=== PATIENT | male | born 1940 | race Caucasian/White ===

== ENCOUNTER → 2018-08-06 | Outpatient (CLI) | payer MEDICARE, BC ==
[~2018-08-06] MED LIST: CARV40CP PO; CRESTOR10 MG PO; LEVO112T2 PO; LIPA1CAP11 PO; LISI-130 PO; METF500T16 PO; PROVENTIL HFA6.7 GM IH; TRIA1TAB3 PO
--- NOTE | 2018-08-06 14:40 | KCIC ---
EXAM: Head CT without contrast. HISTORY: Fall. Unsteady gait. TECHNIQUE: Computed tomographic images of the head were obtained without contrast. *One or more of the following individualized dose reduction techniques were utilized for this examination: 1. Automated exposure control. 2. Adjustment of the mA and/or kV according to patient size. 3. Use of iterative reconstruction technique. COMPARISON: None. FINDINGS: There is no acute or subacute extra-axial or intraparenchymal hemorrhage. There is no mass effect or midline shift. There is no hydrocephalus. There are areas of decreased attenuation within the cerebral white matter, nonspecific and likely related to chronic small vessel disease. There is cerebral volume loss. There is surgical instrument septation within the bilateral maxillary bones. The mastoid air cells are clear. No suspicious calvarial lesion is seen. IMPRESSION: 1. No acute intracranial finding. 2. Subtle areas of hypodensity within the cerebral white matter, likely due to chronic small vessel disease. 3. Cerebral volume loss. Electronically signed by: Cleopatra Mccormick MD (08/06/2018 2:36 PM) [facility]
== END | disposition home or self-care (01) ==
LOC: KCIC CT 13:04
PROVIDERS: ATTEND Psychiatry & Neurology Neurology with Special Qualifications in Child Neurology
DX: R90.82 White matter disease, unspecified (principal); G31.9 Degenerative disease of nervous system, unspecified; Z91.81 History of falling
CPT/HCPCS: 70450

== ENCOUNTER → 2018-11-16 | Outpatient (CLI) | payer MEDICARE, BC ==
[~2018-11-16] MED LIST changes: +ALBU2.5V8 IH; -PROVENTIL HFA6.7 GM IH
--- NOTE | 2018-11-16 18:43 | KCIC ---
EXAM: AP and frog-leg lateral views of the right hip DATE: 11/16/2018 12:00 AM INDICATION: Chronic right hip pain, chronic lower back pain COMPARISON: No Prior FINDINGS: No evidence of acute fracture or dislocation. Joint spaces are preserved without significant degenerative/proliferative change. Chondrocalcinosis right hip joint. Prominent proliferative change/enthesopathic changes at the right anterior superior iliac spine possibly from old avulsion injury. IMPRESSION: 1. No evidence of acute fracture or dislocation. Electronically signed by: Azael Soto MD (11/16/2018 6:39 PM) [facility]
--- NOTE | 2018-11-16 18:48 | KCIC ---
EXAM: AP, lateral and lumbosacral spot views of the lumbar spine DATE: 11/16/2018 12:00 AM INDICATION: Chronic low back pain COMPARISON: CT abdomen and pelvis 01/10/2016 FINDINGS: For the purposes of this report, there are 5 nonrib-bearing lumbar-type vertebral bodies with partial lumbarization of S1. There is moderate to severe L2-3 and moderate L4-5 intervertebral disc height loss. Small anterior endplate osteophytes are seen. Moderate to severe facet degenerative changes at L2-3 and below. Straightening of the normal lumbar lordosis. No spondylolisthesis. Decreased bone mineral density. Cholecystectomy clips are seen. Moderate to large volume colonic stool content is noted. IMPRESSION: 1. Multilevel spondylosis as above 2. Negative acute fracture or subluxation. 3. Transitional lumbosacral anatomy as above. Electronically signed by: Azael Soto MD (11/16/2018 6:44 PM) [facility] [place]
== END | disposition home or self-care (01) ==
LOC: KCIC 15:29
PROVIDERS: ATTEND Psychiatry & Neurology Neurology with Special Qualifications in Child Neurology
DX: M11.251 Other chondrocalcinosis, right hip (principal); M47.896 Other spondylosis, lumbar region; M25.78 Osteophyte, vertebrae
CPT/HCPCS: 72100; 73502

== ENCOUNTER → 2019-02-18 | Outpatient (CLI) | payer MEDICARE, BC ==
--- NOTE | 2019-02-18 17:28 | KCIC ---
CT LUMBAR SPINE WO CONTRAST Indication: Low back pain, unsteady gait Technique: Noncontrast CT imaging was performed of the lumbar spine, multiplanar reconstruction images submitted. One or more of the following individualized dose reduction techniques were utilized for this examination: 1. Automated exposure control 2. Adjustment of the mA and/or kV according to patient size 3. Use of iterative reconstruction technique. Comparison: Reconstruction images from CT abdomen pelvis exam January 10, 2016 Findings: Lumbar vertebral body stature is overall maintained. There is again advanced degenerative disc disease L2-3, L4-5, and L5-S1, to lesser degree at L3-4 and L1-L2. AP alignment is similar, negligible anterior spondylolisthesis at L2-3. No acute lumbar spine fracture is identified. There is mild lumbar levoscoliosis. Not fully evaluated, there is colonic diverticulosis. L1-L2: There is minimal disc osteophyte complex and bulge. Neural foramina are overall adequate. Spinal facet degenerative change. Spinal canal is not significantly narrowed. L2-L3: There is moderate bilateral facet hypertrophic change and mild buckling of the ligamentum flavum. There is minimal disc osteophyte complex. There is probable mild narrowing of the far lateral recesses greater on the left. There is likely mild narrowing of the inferior right neural foramen, left neural foramen adequate. L3-L4: There is minimal disc osteophyte complex and bulge. There is moderate facet degenerative change and mild buckling of the ligament flavum. There is likely mild narrowing of the far left lateral recess. Left neural foramen is adequate. There is moderate narrowing of the right neural foramen, contact of the ventral surface exiting right L3 nerve root by osteophyte. L4-L5: There is moderate facet degenerative change. There is disc osteophyte complex. There may be a shallow more central extrusion extending below the intervertebral disc space. Spinal canal is not significantly narrowed, possible mild narrowing of the far right lateral recess. There is moderate to severe narrowing of the left neural foramen by disc osteophyte complex and facet, mild narrowing of the right neural foramen. L5-S1: There is minimal disc osteophyte complex. There is mild to moderate facet degenerative change greater on the left. Spinal canal is not significantly narrowed. Right neural foramen is adequate, fairly severe narrowing of the left neural foramen in part by disc osteophyte complex contact exiting left L5 nerve root. IMPRESSION: 1. There is more advanced degenerative disc disease L2-3, L4-5, L5-S1 and to lesser degree at other levels. There is multilevel mild spondylosis. There is likely some variable mild lateral recess stenosis as stated, somewhat limited evaluation without myelographic contrast. There is neural foramina compromise as stated greatest on the left at L5-S1 and L4-L5, to lesser degree on the right at L3-4. Electronically signed by: Sergey Kwong MD (02/18/2019 5:25 PM) [facility]
== END | disposition home or self-care (01) ==
LOC: KCIC CT 15:08
PROVIDERS: ATTEND Family Medicine
DX: M51.36 Other intervertebral disc degeneration, lumbar region (principal); M47.816 Spondylosis without myelopathy or radiculopathy, lumbar region; M25.78 Osteophyte, vertebrae; M48.07 Spinal stenosis, lumbosacral region; I10 Essential (primary) hypertension; E11.9 Type 2 diabetes mellitus without complications
CPT/HCPCS: 72131

== ENCOUNTER → 2019-03-31 | Outpatient (CLI) | payer MEDICARE, BC ==
[~2019-03-31] MED LIST changes: +CONTRAST GIVEN. MC PRN; +IOHEXOL 180 MG/ML 10 ML VIAL. IT ONE
[2019-03-31 09:39] VITALS: BP 140/71
[2019-03-31 10:15] VITALS: BP 142/65
--- NOTE | 2019-03-31 10:37 | NUR ---
Patient in CV OBS post Myelogram. Vitals stable, tolerates po fluids. Patient and educated on post myelogram care and which medications to hold for the next twenty four hours, both verbalized understanding. Patient discharged with to private vehicle in wheelchair.
--- NOTE | 2019-03-31 11:47 | RAD ---
Lumbar myelogram, 03/31/2019: History: Lumbar spine stenosis, leg weakness Under local anesthesia, aseptic conditions and fluoroscopic guidance a lumbar puncture was performed at the upper L3 level utilizing a 25-gauge Viktor spinal needle. Clear CSF was obtained following which 14 cc of Omnipaque 180 was injected into the thecal sac. The spinal needle was then removed and appropriate digital imaging performed. 2.3 minutes of fluoroscopy time was utilized. 7 fluoroscopic spot images were recorded. The patient tolerated the procedure well and was sent to CT in good condition. Following findings are delineated on the myelogram: 1. For purposes of these reports the lowest visible disc space will be considered to be L5-S1. There is partial sacralization of its right transverse process. There is a mild left convexity lumbar scoliosis. 2. There are moderate anterior extradural defects at L1-2, L2-3 and L3-4. There are mild posterior extradural defects resulting in mild central spinal stenosis at L2-3 and L3-4. 3. Due to patient weakness and instability were unable to perform the usual upright flexion and extension imaging. The recumbent view showed no evidence of spondylolisthesis. 4. There is symmetric opacification of the nerve root sleeves in the lower lumbar spine. CT of the lumbar spine-post myelogram, 03/31/2019: Multidetector CT imaging was performed with multiplanar reconstructions produced. The following findings are delineated: 1. At L1-2 there is moderate broad-based posterior disc bulging and mild marginal spurring. There are mild degenerative changes involving the facet joints bilaterally. The thecal sac measures 10 mm in AP dimension. There is minimal bilateral foraminal narrowing. 2. At L2-3 there is moderate disc space narrowing with a vacuum disc phenomena and moderate spurring both anteriorly and posteriorly. There is moderate broad-based posterior disc bulging. There are moderate degenerative changes involving the facet joints with posterior ligamentous thickening. The thecal sac measures 9 mm in AP diameter at the midline. The combination of findings is causing mild bilateral foraminal narrowing. 3. At L3-4 there is mild posterior marginal spurring with moderate broad-based posterior disc bulging, worse on the right. There are mild degenerative changes involving the facet joints. The thecal sac measures 10 mm in AP diameter at the midline. There is mild to moderate right foraminal narrowing at this level. 4. At L4-5 there is disc space narrowing with a vacuum disc phenomena, marginal spurring and mild broad-based posterior disc bulging. There are moderate degenerative changes involving the facet joints. The thecal sac measures 10-11 mm in AP diameter at the midline. There is mild inferior foraminal narrowing bilaterally. 5. At L5-S1 there is a vacuum disc phenomena with mild marginal spurring. There is a mild disc/osteophyte complex protruding posteriorly at the midline at the disc level. There are degenerative changes involving the facet joints, worse on the left. There is a suggestion of a partial pars defect on the left at L5. There is no evidence of spondylolisthesis. The central spinal canal is well maintained. There is moderate left foraminal narrowing. There appears to be a small posterior disc protrusion along the lateral margin of the left neural foramen at this level with an associated bubble of gas. 6. There is moderate aortoiliac calcific plaquing. Colonic diverticula are present. There is nonspecific prostatic enlargement. IMPRESSION: 1. Moderate multilevel degenerative change as described above. 2. Mild central spinal stenosis at L2-3 and L3-4. 2. Probable small far left lateral disc protrusion at L5-S1. PQRS Compliance Statement: One or more of the following individualized dose reduction techniques were utilized for this examination: 1. Automated exposure control 2. Adjustment of the mA and/or kV according to patient size 3. Use of iterative reconstruction technique
== END | disposition home or self-care (01) ==
LOC: RAD 08:18
PROVIDERS: ATTEND Neurological Surgery
DX: M48.061 Spinal stenosis, lumbar region without neurogenic claudication (principal); M47.817 Spondylosis without myelopathy or radiculopathy, lumbosacral region
CPT/HCPCS: 72132; 72265; Q9965

== ENCOUNTER → 2019-04-23 | Outpatient (CLI) | payer MEDICARE, BC ==
[~2019-04-23] MED LIST changes: -IOHEXOL 180 MG/ML 10 ML VIAL. IT ONE; +IOHEXOL 300 MG/ML 50 ML VIAL. IT ONE
[2019-04-23 13:40] VITALS: BP 152/71
[2019-04-23 14:49] VITALS: BP 142/71
--- NOTE | 2019-04-23 15:16 | RAD ---
Cervical myelogram, 04/23/2019: HISTORY: Right shoulder pain Under local anesthesia, aseptic conditions and fluoroscopic guidance a lumbar puncture was performed at the mid L3 level utilizing a 25-gauge Viktor spinal needle. Good clear CSF flow was obtained following which 11 cc of Omnipaque 300 was injected into the thecal sac. The spinal needle was then removed and hemostasis obtained. Appropriate digital imaging of the cervical spine was then performed. 3.0 minutes of fluoroscopy time was utilized. 12 fluoroscopic spot images were recorded. The patient tolerated the procedure well and was sent to CT in good condition. The following findings are delineated on the myelogram: 1. The degree of opacification of the cervical thecal sac was suboptimal due to the patient's body habitus. 2. There are only minimal scattered anterior and mild posterior extradural defects. There is no evidence of significant central spinal stenosis. 3. No significant lateral extradural defects are seen. CT of the cervical spine-post myelogram, 04/23/2019: Multidetector CT imaging was performed with multiplanar reconstructions produced. The following findings are delineated: 1. No fracture or subluxation is evident. 2. At C2-3 there is only minimal posterior annular bulging. The central spinal canal and neural foramina are well maintained. 3. At C3-4 there is mild posterior disc bulging at the midline. The thecal sac measures 10 mm in AP diameter at the midline. There is mild facet spurring more so on the right. There is only mild right foraminal narrowing. 4. At C4-5 there is mild posterior disc bulging at the midline. The central spinal canal is well maintained. There is moderate facet joint arthropathy on the left with mild left foraminal narrowing. 5. At C5-C6 there is mild posterior disc bulging. There is minimal degenerative change involving the facet joints. The central spinal canal and neural foramina are well maintained. 6. At C6-7 there is mild disc space narrowing with moderate posterior disc bulging at the midline. The thecal sac measures 10-11 mm in AP diameter at the midline. There is minimal facet joint arthropathy. The neural foramina are well maintained. 7. No significant abnormality is seen at the C7-T1 level. IMPRESSION: Mild scattered degenerative changes as described above without evidence of focal disc herniation or significant central spinal stenosis. PQRS Compliance Statement: One or more of the following individualized dose reduction techniques were utilized for this examination: 1. Automated exposure control 2. Adjustment of the mA and/or kV according to patient size 3. Use of iterative reconstruction technique
--- NOTE | 2019-04-23 15:23 | NUR ---
Patient came in outpatient for myelogram. Vitals stable, no signs or symptoms of distress. Patient did take his own Tylenol for neck pain and stiffness. Patient tolerated fluids well with no issues. Patient and educated on post myelogram care, both verbalized understanding and instruction sheet signed by . Patient discharge home with in wheelchair at 1500.
== END | disposition home or self-care (01) ==
LOC: RAD 13:34
PROVIDERS: ATTEND Neurological Surgery
DX: M47.812 Spondylosis without myelopathy or radiculopathy, cervical region (principal); M48.02 Spinal stenosis, cervical region; M12.88 Other specific arthropathies, not elsewhere classified, other specified site; I10 Essential (primary) hypertension; E11.9 Type 2 diabetes mellitus without complications
CPT/HCPCS: 72126; 72240; Q9967

== ENCOUNTER → 2019-07-01 | Outpatient (CLI) | payer MEDICARE, BC ==
[2019-04-23 14:49] VITALS: BP 142/71
[~2019-07-01] MED LIST changes: +ACET325T9 PO; +AMLO5TAB10 PO; -CONTRAST GIVEN. MC PRN; +IBUP200C9 PO; +IOHEXOL 180 MG/ML 10 ML VIAL. ONE; -IOHEXOL 300 MG/ML 50 ML VIAL. IT ONE; +OMEG1CAP6 PO; +methylPREDNISolone ACETATE 40 MG/ML VIAL. ONE; +methylPREDNISolone ACETATE 80 MG/ML VIAL. ONE
--- NOTE | 2019-07-02 01:23 | PAIN ---
DATE OF SERVICE: 07/01/2019 INITIAL CONSULTATION FOR PAIN CLINIC CHIEF COMPLAINT: Low back and bilateral lower extremity pain, right greater than left. HISTORY OF PRESENT ILLNESS: This is a 79-year-old male who presents with history of pain in the low back for about 3 years into the lower extremities, more on the right than the left, radiating pain into the posterior gluteus, posterolateral thigh, posterior calf, posterior lower leg on the right, but only into the posterior thigh on the left side. The patient reports it is worse with walking, standing, changing positions, better with sitting or resting. Does not awaken her from sleep at night, does not affect her bowel or bladder control, but does affect his ability to walk. He is using a walker, which he has with him today. The patient reports the pain is intermittent in intensity and mostly with weightbearing, standing and walking. The patient reports it is aching pain across the low back, shooting pain. It is stabbing and throbbing sometimes in the legs. The patient reports he has had some physical therapy in the past, which was not significantly helpful, also doing some chiropractic treatment and is currently doing this, which is helpful, but only by about 20%. 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 The patient is taking Advil, 8-hour Tylenol, hydrocodone, all of which do decrease the pain by a moderate extent. The patient did have a myelogram with followup CT showing multilevel degenerative changes, mild central spinal stenosis at L2-L3 and L3-L4 and probable small far left lateral disk protrusion at L5-S1. The patient rates his disability rating from 0-10, 10 being the worst, is a 3 in all categories, family and home responsibility recreation, social activity, sexual behavior, occupation, self-care and life support activities. The patient reports no loss of motor function, again significant fatigability with the lower extremities, especially on the right side with ambulation. PAST MEDICAL HISTORY: Significant for type 2 diabetes, shortness of breath, hypertension, pancreatitis, arthritis. PREVIOUS SURGERY: Include bilateral cataract extraction, cholecystectomy, hemorrhoidectomy, hernia repair x 2. CURRENT MEDICATIONS: Include levothyroxine, lisinopril, Crestor, Proventil, triamterene, fish oil, Advil, Tylenol and amlodipine. ALLERGIES: The patient has no known drug allergies. FAMILY HISTORY: Significant for no major medical problems or conditions that he is aware of. SOCIAL HISTORY: The patient does not drink alcohol, does not smoke, does not use any illegal, illicit or recreational drugs. He is , lives with his spouse. He is currently retired and lives locally in [place], [place]. REVIEW OF SYSTEMS: The patient's review of systems is positive for those items mentioned in history of present illness. All systems reviewed and otherwise negative. It is complete, full and well documented on the patient's chart. PHYSICAL EXAMINATION: VITAL SIGNS: The patient's blood pressure is 162/81, pulse 88, respirations 18, temperature 98.0 degrees Fahrenheit, height is 5 feet 6 inches, weight 142 pounds. GENERAL: The patient is awake, alert, oriented, appropriate, very pleasant demeanor. HEENT: Head is normocephalic, atraumatic. Extraocular movements are intact and symmetrical. Oral cavity: Mucous membranes moist and pink. Dentition is intact. NECK: Shows anterior throat supple without palpable lymphadenopathy noted. Swallow reflex symmetrical. CHEST: Shows normal on inspection. Breath sounds clear to auscultation bilaterally. HEART: Shows S1, S2 clear. No murmurs auscultated. ABDOMEN: Soft, nontender, nondistended. No palpable organomegaly is noted. No rebound or guarding demonstrated. BACK: Shows spine grossly in the midline. Slight exaggeration of thoracic kyphosis and minor flattening of the lumbar lordotic curvature. The patient's lumbar paraspinous muscle shows symmetrical on inspection, on palpation shows some moderate tenderness diffusely bilaterally going diffusely without significant radiation. The patient has good rotational motion of lumbar spine, both laterally greater than 10 degrees right and left as well as extension greater than 10 degrees, forward flexion 45 degrees without significant pain reported. EXTREMITIES: The patient's lower extremities show deep tendon reflexes 2+ in the patellar, 1+ tendo-calcaneus tendons. Motor exam is strong with 5/5 dorsiflexion and extension. Quadriceps and hamstring flexion at about 4/5, but symmetrical and equal bilaterally. The patient's peripheral pulses are 1+ posterior tibia. No peripheral edema is noted. Lower extremities are warm and dry to touch, equal in color and appearance. Straight leg raise noted to be negative bilaterally. Gaenslen's and Feng's maneuvers are negative bilaterally as well. The patient is able to stand, has difficulty rising from a seated and difficulty rising without the use of the arms of the chair and using a walker to ambulate. Has a shuffling gait, does not appear to favor the right or left lower extremity significantly over the other. The patient's skin shows warm and dry, good turgor. No sores, rashes or bruises. Does have some edema in the bilateral ankles. IMPRESSION: 1. This is a 79-year-old male with approximate 3-year history of increasing pain, low back, bilateral lower extremities, worse on the right than the left in a radicular fashion. 2. CT scan, myelogram as noted. 3. Arthritis. 4. Hypertension. 5. Diabetes. PLAN: Options were discussed with the patient including conservative medical management, physical therapies and interventional techniques. He would like to pursue interventional techniques. We discussed a lumbar epidural steroid injection using description as well as anatomical models to describe the procedure. Risks were then discussed including, but not limited to bleeding, infection, possibility of epidural hematoma, subsequent neurologic compromise, dural puncture, headaches, spinal cord and/or nerve damage, side effects of steroid medication and poor results regarding pain control. The patient understands and wished to proceed. The patient will return to clinic in approximately 2 weeks for followup. He was counseled on return appointment, activity level and side effects to be aware of. DIAGNOSES: Lumbar radiculopathy with lumbar degenerative disk disease and lumbar spinal stenosis. PROCEDURE: Lumbar epidural steroid injection, translaminar approach at the L5-S1 level using C-arm fluoroscopic guidance under sterile prep and drape using local anesthetic. MEDICATION INJECTED: A total of 120 mg Depo-Medrol plus 10 mL of preservative-free normal saline and 2 mL of contrast. CONDITION AT DISCHARGE: Stable. The patient tolerated procedure well, had no complications. PARESH OWENS MD DR: KERI/lizbet JOB#: [id number] / [id number]
== END ==
LOC: PNCL 12:32
PROVIDERS: ATTEND Anesthesiology
DX: M51.16 Intervertebral disc disorders with radiculopathy, lumbar region (principal); E11.9 Type 2 diabetes mellitus without complications; I10 Essential (primary) hypertension; Z90.49 Acquired absence of other specified parts of digestive tract; Z98.42 Cataract extraction status, left eye; Z98.41 Cataract extraction status, right eye; Z96.1 Presence of intraocular lens
CPT/HCPCS: 62323; J1030; J1040; Q9965

== ENCOUNTER → 2019-08-31 | Outpatient (CLI) | payer MEDICARE, BC ==
[2019-04-23 14:49] VITALS: BP 142/71
--- NOTE | 2019-08-31 11:34 | PAIN ---
DATE OF SERVICE: 08/31/2019 PROGRESS NOTE FOR PAIN CLINIC DIAGNOSES: Lumbar radiculopathy with lumbar degenerative disk disease and lumbar spinal stenosis. HISTORY OF PRESENT ILLNESS: The patient is a 79-year-old male who returns for followup status post lumbar epidural steroid injection x 1. The patient reports about 50% improvement, but still some pain in the low back and bilateral lower extremities, right greater than left, but was doing much better, increased distance walking, standing, changing positions, better sleeping, but he is now having difficulty with his neck and shoulder, especially on the left side. The patient had a new myelogram, which was reviewed showing some degenerative changes, but no significant stenosis in the neck and shoulder. The patient is seeing his neurosurgeon later this afternoon about this as well. The patient reports his pain in the back and legs as an 8 on a scale of 10 at its worst, on average and a 6 at its least and is an 8 today. The patient reports it is sharp and constant, aching and dull in the lower extremities, mostly in the posterior gluteus, posterior thighs with standing and walking. The patient reports again he is sleeping on the couch. He is not able to lay on his right side secondary to pain in the neck and shoulder. No new motor or sensory deficits or other complaints. PHYSICAL EXAMINATION: VITAL SIGNS: The patient's blood pressure 137/65, pulse 72, respirations 18, temperature 98.2 degrees Fahrenheit. GENERAL: The patient is awake, alert, oriented, appropriate, very pleasant demeanor. HEENT: Shows normocephalic, atraumatic. Extraocular movements are intact and symmetrical. Oral cavity: Mucous membranes moist and pink. Dentition is intact. NECK: Shows anterior throat supple. Swallow reflex symmetrical. CHEST: Shows normal on inspection. Breath sounds are clear bilaterally. HEART: Shows S1, S2 clear. No murmurs auscultated. ABDOMEN: Soft, nontender, nondistended. BACK: Shows spine grossly in the midline. Normal appearing thoracic kyphosis and lumbar lordotic curvature. Lumbar paraspinous muscle shows symmetrical on inspection, on palpation shows some moderate tenderness diffusely, but only diffusely without significant radiation. EXTREMITIES: The patient's lower extremities show deep tendon reflexes 2+ in the patellar, 1+ tendo-calcaneus tendons. Motor exam is strong with mostly 4 on a scale of 5, but equal and symmetrical dorsiflexion, extension, quadriceps and hamstring flexion. Peripheral pulses are 1+. No peripheral edema is noted bilaterally. Options were discussed with the patient. The patient's old chart was reviewed as his current medication regimen updated. Current review of systems updated today as well. We will proceed with a lumbar epidural steroid injection today with fluoroscopic guidance as the second in the series. Risks were again discussed including, but not limited to bleeding, infection, possibility of epidural hematoma, subsequent neurological compromise, dural puncture, headaches, spinal cord and/or nerve damage, side effects of steroid medication and poor results regarding pain control. The patient understands and wished to proceed. The patient will return to clinic in approximately 2 weeks for followup. He was counseled on return appointment, activity level and side effects to be aware of. DIAGNOSES: Lumbar radiculopathy with lumbar degenerative disk disease and lumbar spinal stenosis. PROCEDURE: Lumbar epidural steroid injection, translaminar approach L5-S1 level using C-arm fluoroscopic guidance under sterile prep and drape using local anesthetic. MEDICATION INJECTED: A total of 120 mg Depo-Medrol plus 10 mL of preservative-free normal saline and 2 mL of contrast. CONDITION AT DISCHARGE: Stable. The patient tolerated the procedure well, had no complications. PARESH OWENS MD DR: KERI/lizbet JOB#: [id number] / [id number]
== END ==
LOC: PNCL 09:10
PROVIDERS: ATTEND Anesthesiology
DX: M51.16 Intervertebral disc disorders with radiculopathy, lumbar region (principal); M48.061 Spinal stenosis, lumbar region without neurogenic claudication
CPT/HCPCS: 62323; J1030; J1040; Q9965

== ENCOUNTER → 2019-09-20 | Outpatient (CLI) | payer MEDICARE, BC ==
[2019-04-23 14:49] VITALS: BP 142/71
[~2019-09-20] MED LIST changes: -ALBU2.5V8 IH; -IOHEXOL 180 MG/ML 10 ML VIAL. ONE; +PROVENTIL HFA6.7 GM IH; -methylPREDNISolone ACETATE 40 MG/ML VIAL. ONE; -methylPREDNISolone ACETATE 80 MG/ML VIAL. ONE
--- NOTE | 2019-09-20 13:26 | KCIC ---
EXAM: CT HEAD WITHOUT CONTRAST. HISTORY: Gait disturbance, lower extremity weakness, memory loss, fall. TECHNIQUE: Computed tomography of the head was performed without intravenous contrast. One or more of the following individualized dose reduction techniques were utilized for this examination: 1. Automated exposure control. 2. Adjustment of the mA and/or kV according to patient size. 3. Use of iterative reconstruction technique. COMPARISON: 08/06/2018. FINDINGS: There is no intracranial hemorrhage. Hypoattenuation within the white matter indicates moderate chronic microangiopathic change. Prominence of the lateral ventricles and hemispheric sulci indicates moderate atrophy. The visualized paranasal sinuses appear clear. There are postoperative changes anteriorly along both maxillae. Chronic nasal fractures are suspected. There are chronic bilateral medial orbital wall fractures. There are changes of bilateral cataract surgery. The temporal bones are unremarkable. The calvarium reveals no suspicious lesions. There are atherosclerotic calcifications of the internal carotid and vertebral arteries. IMPRESSION: 1. No acute intracranial findings. 2. Moderate atrophy and chronic microangiopathic white matter change. Electronically signed by: Allan Moody MD (09/20/2019 1:23 PM) [facility]
--- NOTE | 2019-09-20 14:34 | KCIC ---
EXAM: 1. CT thoracic spine without contrast. 2. CT right hip without contrast. HISTORY: Gait disturbances, right hip pain. TECHNIQUE: CT of the thoracic spine and right hip was performed without contrast. One or more of the following individualized dose reduction techniques were utilized for this examination: 1. Automated exposure control. 2. Adjustment of the mA and/or kV according to patient size. 3. Use of iterative reconstruction technique. COMPARISON: None. FINDINGS: There is a mild thoracic dextrocurvature. No fractures are identified. There is mild mid and lower thoracic degenerative disc disease. There is slight exaggeration of the thoracic and upper thoracic kyphosis. There is a benign hemangioma in T5. There is no clear osseous central canal stenosis or neural foraminal stenosis. Limited images of the lungs reveal mild to moderate centrilobular emphysema. Tiny bilateral upper lobe nodules measure 2 mm or less and are likely benign at this small size. Aortic valve calcifications and coronary atherosclerotic calcifications are noted. There is a small hiatal hernia. Calcified mediastinal lymph nodes are likely secondary to old granulomatous disease. No fractures are appreciated at the right hip. There is mildly to moderately decreased femoral head/neck offset anteriorly. There are small osteophytes and mild joint space narrowing along the posterior aspect of the hip joint space consistent with early osteoarthritis. Sigmoid diverticulosis is moderate. IMPRESSION: 1. Mild mid and lower thoracic degenerative disc disease. No clear central stenosis without contrast. MRI is more sensitive if there is persistent concern. 2. 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 3. Mild to moderate centrilobular emphysema. 4. Small hiatal hernia. Electronically signed by: Allan Moody MD (09/20/2019 2:31 PM) [facility]
== END | disposition home or self-care (01) ==
LOC: KCIC CT 10:11
PROVIDERS: ATTEND Family Medicine
DX: G31.89 Other specified degenerative diseases of nervous system (principal); R90.82 White matter disease, unspecified; M51.34 Other intervertebral disc degeneration, thoracic region; K57.30 Diverticulosis of large intestine without perforation or abscess without bleeding; M16.11 Unilateral primary osteoarthritis, right hip; J43.2 Centrilobular emphysema; I35.8 Other nonrheumatic aortic valve disorders; I25.10 Atherosclerotic heart disease of native coronary artery without angina pectoris; K44.9 Diaphragmatic hernia without obstruction or gangrene; Z98.890 Other specified postprocedural states
CPT/HCPCS: 70450; 72128; 73700